=== PATIENT | female | born 1985 | race Caucasian/White ===

== ENCOUNTER 2024-04-08 10:53 | Day surgery (SDC) | payer OTHER, SELFPAY ==
[2024-04-02 09:42] VITALS: BMI 34.3
[2024-04-08] VITALS (8 sets, daily range): BP systolic 139–159; BP diastolic 76–91; PULSE 59–84; RESP 12–22; TEMP 36.2–36.9; O2SAT 91–99; BMI 33.7
--- NOTE | 2024-04-08 | PATH_ITS ---
[facility] Accession Number: [id number] No. of containers..01 Tissue . 01 Material submitted: . gallbladder - GALLBLADDER . 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 Benign, lymph node of cystic duct. Negative for dysplasia and malignancy. [facility] 04/10/2024 1132 Local . 01 Electronically signed: . Corinne Tejeda MD, Pathologist NPI- [id number] . 01 Gross description: . Received in formalin with two patient identifiers and gallbladder, is a disrupted gallbladder, 7.2 x 2.5 x 2.2 cm, with a green, wrinkled external surface and a full thickness defect on the hepatic surface, 0.4 cm in greatest dimension. The cystic duct margin is inked blue and a chaudhry lymph node candidate is identified, 0.5 cm in greatest dimension. The lumen contains multiple yellow bosselated calculi, up to 0.9 cm in greatest dimension, admixed with green mucoid bile. The mucosa is green and velvety with yellow areas of discoloration and no polyps or lesions identified. The celestin average 0.3 cm thick. Shear Setter sections to include the cystic duct margin and full thickness sections are submitted in A1. ([id number]) /MRV 04/09/2024 1712 Local . 01 Pathologist provided ICD-10: K80.20 . 01 CPT . 260945 Specimen Comment: A courtesy copy of this report has been sent to [facility] Performed at: [address] [address], [place], [place] [id number] MD Pedro Escobar MD Phone: [phone]
[2024-04-08] MEDS: SCOPOLAMINE 1 PATCH TOP (11:35)
[2024-04-08] MEDS: FAMOTIDINE 20 MG/2 ML VIAL IV (11:35)
[2024-04-08] MEDS: LACTATED RINGERS 1,000 ML 42 ML IV ×2 (11:35→13:59)
--- NOTE | 2024-04-08 11:40 | P.OP.PRE_ITS ---
Pre-operative Note COVID-19 COVID-19 status: Not tested Interval Note History & Physical reviewed/Exam performed by Physician: Yes Changes to H&P: No H&P completed within 30 days and has changed as indicated here:: No updates. P atient is still symptomatic with food.
[2024-04-08] MEDS: CEFAZOLIN 2 GM/100 ML PREMIX 100 ML IV (12:25)
--- NOTE | 2024-04-08 12:36 | SUR.OPER ---
Supine on padded OR bed, head on pillow, safety belt at thigh, right arm padded and tucked at side. Left arm secured on padded arm board <90 degrees abduction. Legs uncrossed. Padded footboard in place. Tape over blanket to secure lower legs.
[2024-04-08] MEDS: BUPIVACAINE 0.5% W/ EPI (PF) 30 ML VIAL INJ (12:45)
[2024-04-08] MEDS: iopamidoL 30 ML VIAL INJ (12:46)
--- NOTE | 2024-04-08 13:14 | PM.OP.1 ---
Procedure & Clinicians Procedure: Laparoscopic cholecystectomy Same procedure as scheduled: Yes Indications: Chronic cholecystitis Surgeon: Boyd Olmos Click Yes if Unassisted: Yes Anesthesia Type: General Operative Notes Findings: Cystic duct was too small to accommodate cholangiogram catheter Closure Type: primary Specimen(s): other (Gallbladder and contents.) Applied: catheter Estimated Blood Loss (mL): 15 Procedure in detail: Patient was brought to the operating room suite after consent was obtained. Time-out was performed. General anesthesia was induced with the patient the supine position the arms out. The abdomen was prepped and draped. A total of 30 mL 0.25% Marcaine were infiltrated at all the trocar sites. 5 mm optical trocar was placed in the left upper quadrant. Pneumoperitoneum was achieved the abdomen was inspected. There were adhesions of the duodenum to the gallbladder consistent with chronic cholecystitis. Additional 11 mm trocar was placed in a supraumbilical position. Two 5 mm trocars placed in the right upper quadrant. The gallbladder was grasped, retracted cephalad and laterally. The medial and lateral attachments of the gallbladder were opened with Bovie electrocautery. A single cystic duct and single cystic artery were identified. The cystic artery was clipped and divided. The cystic duct had a clip placed at the junction of the infundibulum and the cystic duct. After cystic ductotomy was performed the cystic duct was found to be very diminutive and unable to accommodate a 5 mm cholangiogram catheter. As such no catheter was able to be inserted, and 5 mm clips were then placed across the cystic duct stump. Bovie electrocautery was used through the gallbladder from the liver bed. The gallbladder was placed in Endo-Catch bag and brought out through the umbilical trocar. We will trocar was closed with 0 Vicryl on a Rayo-Evgeny suture Passer. There was no spillage of bile or stones. The abdomen was irrigated and suctioned free. Pneumoperitoneum was relieved. The 5 mm ports were closed with 4-0 Monocryl and Dermabond. Patient tolerated procedure well was transferred to PACU in stable condition for anticipated discharge. Complications: none Post-operative Condition: stable Disposition: PACU
[2024-04-08] MEDS: fentaNYL 100 MCG/2 ML INJ IV ×2 (13:35→13:40)
[2024-04-08] MEDS: ONDANSETRON 4 MG/2 ML INJ IV (13:45)
[2024-04-08] MEDS: OXYCODONE/ACETAMINOPHEN 5/325 TABLET 1 TAB PO (13:48)
[2024-04-08] MEDS: hydrOXYzine 50 MG/ML INJ 25 MG IM (14:01)
[2024-04-08] MEDS: BENZOCAINE/MENTHOL 1 LOZ PKT 1 EACH PO (14:33)
== END 2024-04-08 14:50 | disposition home or self-care (01) ==
PROVIDERS: PCP Physician Assistant Medical; Referring Provider Surgery; Visit Provider Surgery
PROC: 0FT44ZZ Resection of Gallbladder, Percutaneous Endoscopic Approach (ICD-10-PCS; CPT 47563; principal; 2024-04-08 12:30)
DX: K80.10 Calculus of gallbladder with chronic cholecystitis without obstruction (principal); K21.9 Gastro-esophageal reflux disease without esophagitis; K76.0 Fatty (change of) liver, not elsewhere classified
CPT/HCPCS: 47562; J0330; J0690; J1100; J1885; J2250; J2405; J2704; J3010; J3410; Q9967